=== PATIENT | male | born 1970 | race Caucasian/White ===

== ENCOUNTER 2016-09-27 02:33 | Emergency (ER) | payer SELFPAY ==
[~2016-09-27] VITALS: Ht 175.3 cm; Wt 82.6 kg
[2016-09-27] MEDS ORDERED: NKM (02:45)
[2016-09-27] MEDS ORDERED: BACTRIM DS TAB1 EAC1 ORAL (03:46)
[2016-09-27] MEDS ORDERED: CLINDAMYCIN HC300 MG ORAL (03:46)
[2016-09-27] MEDS ORDERED: IBUPROFEN600 MG ORAL (03:46)
[2016-09-27] MEDS ORDERED: OCUFLOX5 ML OP (03:46)
[2016-09-27 03:56] VITALS: BP 131/91
[2016-09-27 03:57] VITALS: BP 130/92
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
--- NOTE | 2016-09-28 08:06 | Diagnostic Imaging Report ---
Indication: PAIN Technique: 3 views right hand Comparison: none Findings: No acute fractures. No dislocations. Joint spaces are preserved. Impression: Negative
== END 2016-09-27 03:58 ==
LOC: EMR 03:23
DX: Z02.89 Encounter for other administrative examinations (principal); S62.524A Nondisplaced fracture of distal phalanx of right thumb, initial encounter for closed fracture; S05.92XA Unspecified injury of left eye and orbit, initial encounter; Z88.6 Allergy status to analgesic agent; Z88.1 Allergy status to other antibiotic agents; Z88.0 Allergy status to penicillin; Y04.1XXA Assault by human bite, initial encounter; Y92.9 Unspecified place or not applicable; Y99.8 Other external cause status
CPT/HCPCS: 29280; 99284